=== PATIENT | female | born 1995 | race Caucasian/White ===

== ENCOUNTER 2019-02-17 14:02 | Observation (INO) ==
[2019-02-17] MEDS ORDERED: Ketorolac 15 MG/ML VIAL IVP ONE (15:00)
[2019-02-17] MEDS ORDERED: Ondansetron 4 MG/2 ML VIAL IVP ONE (15:00)
[2019-02-17] MEDS ORDERED: *HR* FentaNYL (PF) 100 MCG/2 ML VIAL IVP ONE (15:00)
[2019-02-17 15:04] LABS: Basophils % 0.6 %; Eosinophils # 0.1 K/mcL (0.0-0.6); Eosinophils % 1.3 %; Hematocrit 38.6 % (35.3-44.9); Immature Granulocytes % 0.3 % (0-4); Lymphocytes # 1.7 K/mcL (0.6-4.6); Lymphocytes % 24.6 %; Mean Corpuscular HGB Conc 36.3 g/dL (31.6-35.5); Mean Corpuscular Hemoglobin 31.2 pg (28.0-33.3); Mean Platelet Volume 11.9 fL (9.4-12.4); Monocytes # 0.7 K/mcL (0.0-1.3); Neutrophils # 4.5 K/mcL (1.6-8.9); Platelet Count 201 K/mcL (140-400); Red Blood Count 4.49 M/mcL (3.82-4.97); Red Cell Distribution Width 11.7 % (11.5-14.5); Segmented Neutrophils % 63.2 %; White Blood Count 7.1 K/mcL (4.3-11.1)
[2019-02-17 15:05] LABS: Bilirubin,Urine Negative (Negative); Blood,Urine Negative (Negative); Clarity,Urine Clear (Clear); Color,Urine Yellow (Yellow); Glucose,Urine (UA) Normal (Normal); Ketones,Urine Negative (Negative); Leukocyte Esterase,Urine Negative (Negative); Nitrite,Urine Negative (Negative); Protein,Urine Negative (Neg-Trace); Specific Gravity,Urine 1.012 (1.010-1.025); Urobilinogen,Urine Normal (Normal)
[2019-02-17 16:04] LABS: Alanine Aminotransferase 12 Units/L (7-52); Albumin 4.3 g/dL (3.5-5.7); Albumin/Globulin Ratio 1.4 (1.1-2.2); Alkaline Phosphatase 77 Units/L (34-104); Amylase 59 Units/L (29-103); Aspartate Amino Transferase 15 Units/L (13-39); BUN/Creatinine Ratio 9 (6-26); Bilirubin,Direct 0.1 mg/dL (0.0-0.2); Bilirubin,Indirect 0.3 mg/dL (0.0-1.2); Bilirubin,Total 0.4 mg/dL (0.3-1.0); Blood Urea Nitrogen 6 mg/dL (6-20); Calcium 9.5 mg/dL (8.6-10.3); Carbon Dioxide 24 mEq/L (23-29); Chloride 107 mEq/L (98-107); Glucose 99 mg/dL (70-105); Osmolality,Calculated 286 (280-300); Potassium 4.4 mEq/L (3.5-5.1); Sodium 139 mEq/L (136-145); Total Protein 7.3 g/dL (6.4-8.9); eGFR For African Americans > 60 (> 60); eGFR For Non-African Americans > 60 (> 60)
[2019-02-17] MEDS ORDERED: 0.9 % Sodium Chloride 1,000 ML IVC ONE (16:25)
[2019-02-17] MEDS ORDERED: D5% in 0.9% NACL 1,000 ML IVC SCH (20:15)
[2019-02-17] MEDS: Ondansetron ODT 4 MG TAB.RAPDIS SL PRN (20:21)
[2019-02-18] MEDS ORDERED: Ondansetron 4 MG/2 ML VIAL IVP ONE (00:19)
[2019-02-18] MEDS: Ondansetron ODT 4 MG TAB.RAPDIS SL PRN (04:33)
[2019-02-18] MEDS ORDERED: *HR* Midazolam HCl 2 MG/2 ML VIAL ONE (07:13)
[2019-02-18] MEDS ORDERED: *HR* Propofol 200 MG/20 ML VIAL IVP ONE (07:13)
[2019-02-18] MEDS ORDERED: *HR* FentaNYL (PF) 100 MCG/2 ML VIAL ONE (07:13)
[2019-02-18] MEDS ORDERED: Isovue-300 50ML VIAL ONE (07:13)
[2019-02-18] MEDS ORDERED: *HR* Rocuronium Bromide 50 MG/5 ML VIAL ONE (07:17)
[2019-02-18] MEDS ORDERED: Lidocaine HCL 4 ML Topical Solution (Laryng-O-Jet Kit Sterile Pak) TP ONE (07:17)
[2019-02-18] MEDS ORDERED: Dexamethasone 4 MG/ML VIAL ONE (07:17)
[2019-02-18] MEDS ORDERED: Lidocaine -MPF 2% 2 ML VIAL ONE (07:17)
[2019-02-18] MEDS ORDERED: *HR* Succinylcholine 200 MG/10 ML VIAL IVP ONE (07:17)
[2019-02-18] MEDS ORDERED: Ondansetron 4 MG/2 ML VIAL ONE (07:17)
[2019-02-18] MEDS ORDERED: *HR* Labetalol 20 MG/4 ML SYRINGE IVP PRN (07:32)
[2019-02-18] MEDS ORDERED: *HR* Midazolam HCl 2 MG/2 ML VIAL IVP PRN (07:32)
[2019-02-18] MEDS ORDERED: Albuterol 2.5 MG/3 ML NEBULIZER IH PRN (07:32)
[2019-02-18] MEDS ORDERED: Acetaminophen IV 1,000 MG/100 ML INFUS..BTL IVPB ONE (07:32)
[2019-02-18] MEDS ORDERED: *HR* HYDROmorphone (PF) 1 MG/ML SYRINGE IVP PRN (07:32)
[2019-02-18] MEDS ORDERED: *HR* Meperidine 25 MG/ML SYRINGE IVP PRN (07:32)
[2019-02-18] MEDS ORDERED: *HR* OxyCODONE Immed Rel 5 MG TABLET PO PRN (07:32)
[2019-02-18] MEDS ORDERED: *HR* Promethazine 25 MG/ML VIAL IVP PRN (07:32)
[2019-02-18] MEDS ORDERED: Scopolamine Patch 1.5 MG PATCH.TD72 TD ONE (07:38)
[2019-02-18] MEDS ORDERED: *HR* Promethazine 25 MG/ML VIAL ONE (07:41)
[2019-02-18] MEDS ORDERED: Scopolamine Patch 1.5 MG PATCH.TD72 ONE (07:41)
[2019-02-18] MEDS ORDERED: Ringers Solution, Lactated 1,000 ML IVC SCH (07:45)
[2019-02-18] MEDS ORDERED: *HR* HYDROMORPHONE 2 MG/ML VIAL ONE (08:32)
[2019-02-18] MEDS ORDERED: Neostigmine Methylsulfate 3 MG/3 ML SYRINGE ONE (08:40)
[2019-02-18] MEDS ORDERED: Pantoprazole 40 MG VIAL IVP SCH (09:00)
[2019-02-18] MEDS: *HR* FentaNYL (PF) 100 MCG/2 ML VIAL IVP PRN ×2 (09:35→09:40)
[2019-02-18] MEDS ORDERED: Ondansetron ODT 4 MG TAB.RAPDIS SL PRN (10:04)
[2019-02-18] MEDS ORDERED: *HR* LORazepam 0.5 MG TABLET PO PRN (10:04)
[2019-02-18] MEDS ORDERED: D5% in 0.9% NACL 1,000 ML IVC SCH (10:04)
[2019-02-18] MEDS ORDERED: *HR* FentaNYL (PF) 100 MCG/2 ML VIAL IVP ONE (10:44)
[2019-02-18] MEDS ORDERED: Piperacillin/Tazobactam 3.375 GM in 0.9 % Sodium Chloride Mini Bag 100 ML IVPB SCH ×2 (11:00)
[2019-02-18 12:43] VITALS: BP 118/76
[2019-02-18] MEDS ORDERED: *HR* Heparin 5,000 UNIT/ML VIAL SQ SCH (14:00)
[2019-02-18] MEDS: *HR* OxyCODONE Immed Rel 5 MG TABLET PO PRN ×2 (14:00→18:26)
[2019-02-19] MEDS ORDERED: hydroCHLOROthiazide 25 MG TABLET PO SCH (09:00)
== END 2019-02-18 18:46 | disposition home or self-care (01) ==
LOC: 3ANU 14:02 → EMEROOARM 14:02 → 3ANU 19:30
PROVIDERS: ADMIT Surgery; ATTEND Surgery